=== PATIENT | female | born 1995 | race Caucasian/White ===

== ENCOUNTER 2017-08-13 16:13 | Observation (INO) | payer BC, OTHER ==
[2017-08-13 18:09] LABS: Mean Cell Volume 88.9 fl (78-100); Mean Corpuscular Hemoglobin 29.5 pg (26-32); Mean Platelet Volume 9.3 fl (6-9.5); Platelet Count 226 K/mm3 (150-450); Red Blood Count 3.96 M/mm3 (4.1-5.4); Red Cell Distribution Width 13.8 % (11.5-14.0); White Blood Count 12.4 K/mm3 (4.0-10.5)
[2017-08-13 18:42] LABS: Bacteria MODERATE /HPF (NEGATIVE); Bilirubin NEGATIVE (NEGATIVE); Blood TRACE NON-HEM Ery/ul (0-5); COMPLETE URINE MICROSCOPIC? YES; Collection Type CCMS; Epithelial Cells MANY /HPF (FEW); Glucose NEGATIVE (NEGATIVE); Leukocyte Esterase 1+ (NEGATIVE)
[2017-08-13 18:50] LABS: ALBUMIN 2.3 g/dL (3.4-5.0); ALKALINE PHOSPHATASE 88 U/L (46-116); ANION GAP 15.5 MEQ/L (5-15); BLOOD UREA NITROGEN 6 mg/dL (9-20); CHLORIDE 106 mEq/L (98-107); Carbon Dioxide 21.9 mEq/L (21-32); Glucose 115 MG/DL (70-110); SGOT/AST 10 U/L (15-37); SGPT/ALT 8 U/L (12-78); SODIUM 142 mEq/L (136-145)
[2017-08-13 18:52] LABS: Potassium 2.8 mEq/L (3.5-5.1)
[2017-08-13] MEDS ORDERED: K-LYTE 25 MEQ PO ONE (19:02)
[2017-08-13 19:18] LABS: ATYPICAL LYMPHS 11 %; BAND 2 % (0.0-2.0); Eosinophil 3 % (0.00-3.0); Platelet Estimate NORMAL (NORMAL); Total Cells Counted 100
[2017-08-13] MEDS: Lactated Ringers 1,000 ML IV SCH (19:48)
[2017-08-13] MEDS ORDERED: TYLENOL EXTRA STRENGTH 500 MG PO PRN (19:52)
[2017-08-14] MEDS: Lactated Ringers 1,000 ML IV SCH (06:26)
[2017-08-14 06:45] LABS: ANION GAP 12.7 MEQ/L (5-15); BLOOD UREA NITROGEN 6 mg/dL (9-20); CHLORIDE 107 mEq/L (98-107); Carbon Dioxide 23.7 mEq/L (21-32); Glucose 110 MG/DL (70-110); Potassium 3.3 mEq/L (3.5-5.1); SODIUM 140 mEq/L (136-145)
[2017-08-14 07:58] VITALS: PULSE 72
[2017-08-14] MEDS ORDERED: MAG-OX 400 PO SCH (10:00)
[2017-08-14 11:09] VITALS: BP 124/71
== END 2017-08-14 13:05 | disposition home or self-care (01) ==
LOC: OB 16:13
PROVIDERS: ADMIT Family Medicine; ATTEND Family Medicine
DX: Z34.03 Encounter for supervision of normal first pregnancy, third trimester (principal); R03.0 Elevated blood-pressure reading, without diagnosis of hypertension; E87.6 Hypokalemia
CPT/HCPCS: 36415; 59025; 80048; 80053; 80307; 81000; 83735; 84550; 85025; G0378; A9270-GY

== ENCOUNTER 2017-08-15 21:33 | Observation (INO) | payer BC, OTHER ==
[2017-08-15 22:04] LABS: Bilirubin NEGATIVE (NEGATIVE); Collection Type VOID; Glucose 100 mg/dL (NEGATIVE); Leukocyte Esterase TRACE (NEGATIVE)
[2017-08-15 22:05] LABS: Bacteria FEW /HPF (NEGATIVE); Blood TRACE NON-HEM Ery/ul (0-5); COMPLETE URINE MICROSCOPIC? YES; Epithelial Cells MODERATE /HPF (FEW)
[2017-08-16 00:04] VITALS: O2SAT 97
[2017-08-16] MEDS ORDERED: Celestone Soluspan 6MG/ML IM ONE (15:30)
[2017-08-16 17:26] VITALS: BP 139/76; PULSE 87
[2017-08-16] MEDS ORDERED: Celestone Soluspan 6MG/ML ONE (17:36)
== END 2017-08-16 17:50 | disposition home or self-care (01) ==
LOC: OB 21:33 → UNDOADMOB 21:33 → UNDODISOB 08-16 17:50
PROVIDERS: ADMIT Family Medicine; ATTEND Family Medicine
DX: O14.03 Mild to moderate pre-eclampsia, third trimester (principal); Z3A.29 29 weeks gestation of pregnancy; R73.9 Hyperglycemia, unspecified
CPT/HCPCS: 80307; 81000; 96372; G0378; J0702